=== PATIENT | female | born 1945 | race Caucasian/White ===

== ENCOUNTER 2019-09-30 23:38 | Emergency (ER) | payer MEDICARE, OTHER ==
[~2019-09-30] VITALS: Ht 170.2 cm; Wt 80.7 kg
[2019-09-30] MEDS ORDERED: DEXAMETHASONE SOD PHOSPHATE 10 MG/ML VIAL ONE (23:52)
--- NOTE | 2019-09-30 23:58 | NUR ---
PT KRISHAN FROM HOME C/O SOB SATING AT 91% GIVEN 0.5MG EPI BY EMS RADIOPHARMACIST. HX ASTHMA AND COPD, TO ER BED 8, SATING 97% ON 2 L O2, OTHER VITALS STABLE
--- NOTE | 2019-09-30 23:59 | NUR ---
PHLEB AT BEDSIDE FOR LAB DRAW
[2019-10-01] MEDS ORDERED: DEXAMETHASONE SOD PHOSPHATE 10 MG/ML VIAL IV ONE
[2019-10-01 00:06] LABS: BASOPHILS # (AUTO) 0.1 /CMM (0.0-0.2); BASOPHILS % (AUTO) 0.7 % (0.0-2.0); EOSINOPHILS % (AUTO) 4.7 % (0.0-6.0); HEMATOCRIT 45 % (33-45); HEMOGLOBIN 15.8 g/dL (11.5-14.8); LYMPHOCYTES % (AUTO) 36.9 % (20.0-44.0); MEAN CORPUSCULAR HGB CONC 35 g/dl (31.0-36.0); MEAN CORPUSCULAR VOLUME 91 fL (82-100); MONOCYTES # (AUTO) 1.2 /CMM (0.1-1.30); MONOCYTES % (AUTO) 8.6 % (2.0-12.0); NEUTROPHILS # (AUTO) 6.7 /CMM (1.8-8.9); NEUTROPHILS % (AUTO) 49.1 % (43.0-81.0); PLATELET COUNT (AUTO) 269 /CMM (150-450); RED BLOOD CELL COUNT(AUTO) 4.94 MIL/uL (4.0-5.2); WHITE BLOOD COUNT (AUTO) 13.5 K/uL (4.3-11.0)
[2019-10-01 00:10] LABS: ABG BASE EXCESS 3.3 mmol/L; ABG OXYGEN SATURATION 94.9 % (92.0-98.5); ABG PCO2 48.7 mmHg (35.0-45.0); ABG PH 7.396 (7.350-7.450); AaDO2 66.2 mmHg; COHb 5.2 % (0.5-1.5); MetHb 0.2 % (0.0-1.5); O2Hb 89.8 % (94.0-97.0); SITE, ABG Left Radial; VENT MODE, BG 2LNC
[2019-10-01 00:25] LABS: ALANINE AMINOTRANSFERASE 25 U/L (12-78); ALBUMIN 3.8 g/dL (3.4-5.0); ALKALINE PHOSPHATASE 54 U/L (46-116); ASPARTATE AMINOTRANSFERASE 15 U/L (15-37); B-TYPE NATRIURETIC PEPTIDE 377 PG/ML (0-125); BILIRUBIN,DIRECT 0.1 mg/dL (0.0-0.2); BILIRUBIN,TOTAL 0.4 mg/dL (0.2-1.0); CALCIUM, SERUM 9.3 mg/dL (8.5-10.1); CARBON DIOXIDE 31 mmol/L (21-32); CHLORIDE 107 mmol/L (98-107); CREATININE 0.6 mg/dL (0.6-1.3); GLUCOSE 110 mg/dL (74-106); POTASSIUM 3.6 mmol/L (3.5-5.1); SODIUM SERUM 145 mmol/L (136-145); TOTAL PROTEIN, SERUM 7.1 g/dL (6.4-8.2); UREA NITROGEN, BLOOD 13 mg/dL (7-18)
--- NOTE | 2019-10-01 01:58 | NUR ---
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
--- NOTE | 2019-10-01 07:34 | NUR ---
assume pt care. sleeping, easily arousable. on monitor w/ stable vitals. denies any pain or sob. needs attended. awaiting son for bulk picker.
--- NOTE | 2019-10-01 07:44 | NUR ---
called patients son for corn picker. no answer left a message.
--- NOTE | 2019-10-01 08:49 | NUR ---
provided w/ meal tray.
--- NOTE | 2019-10-01 09:01 | NUR ---
UNABLE TO GET A HOLD OF FAMILY,PATIENT IS W/C BORNE AND C/O SOB, DR MARTINEZ INFORMED. SUGGESTED ADMISSION AT THIS TIME
--- NOTE | 2019-10-01 09:04 | NUR ---
ACID ADJUSTER received a call from ED COURTNEY Hastings regarding pt's son not calling back to pick up and delivery driver the pt. ACID ADJUSTER contacted pt's son Art and left him a voicemail and text message requesting a call back and to come to ED and pick up and delivery driver the pt.
--- NOTE | 2019-10-01 09:10 | NUR ---
REGISTERED NURSE CARDIAC TELEMETRY received a text message from pt's son stating he just got to work and did not know his mother was brought in to ED. Art stated, he will call his brother to inquire if he can pick the pt up and f/u with SW.
--- NOTE | 2019-10-01 09:44 | NUR ---
dr reaves spoke with patient,refused to be admitted, edouard esparza called to keep trying to get a hold of family
--- NOTE | 2019-10-01 10:02 | NUR ---
pt provided w meal tray. stable condition. able to make needs known. denies sob. stable vitals. will continue to monitor.
--- NOTE | 2019-10-01 10:35 | NUR ---
MOVE SHEET SUBMITTED TO ADMITTING FOR ER OBSERVATION.
--- NOTE | 2019-10-01 11:12 | NUR ---
MERLIN CAMEJO CALLED SPOKE WITH SON. NEEDS TRANSPORTATION. [facility] WILL BE HERE AT 1330.
--- NOTE | 2019-10-01 14:00 | NUR ---
IV removed. Catheter intact and site benign. Pressure and 4x4 applied to site. No bleeding noted.
--- NOTE | 2019-10-01 14:03 | NUR ---
pt discharge via ambulance going back to her place. stable condition.
[2019-10-01 14:08] VITALS: BP 141/86
== END 2019-10-01 14:10 | disposition home or self-care (01) ==
LOC: ER 23:38
DX: J44.9 Chronic obstructive pulmonary disease, unspecified (principal)
CPT/HCPCS: 36415; 36600 ×2; 71045; 80048; 80076; 82803; 83880; 84484; 85025; 93005; 96374; 99285; J1100